=== PATIENT | female | born 1985 | race Hispanic/Latino ===

== ENCOUNTER 2018-01-12 10:10 | Emergency (ER) | payer MEDICAID ==
[2018-01-12 10:54] LABS: APPEARANCE,URINE Clear (CLEAR); BILIRUBIN,URINE Negative (NEGATIVE); COLOR,URINE Yellow (YELLOW); GLUCOSE, URINE (UA) Negative (NEGATIVE); KETONES,URINE Negative (NEGATIVE); LEUKOCYTE ESTERASE ,URINE Trace (NEGATIVE); NITRATE,URINE Negative (NEGATIVE); OCCULT BLOOD,URINE Negative (NEGATIVE); PH,URINE 5.5 (5.0-8.0); PROTEIN,URINE Negative (NEGATIVE); UROBILINOGEN,URINE 0.2 mg/dL (0.2-1.0)
[2018-01-12 10:59] LABS: HCG,QUAL RESULT NEGATIVE (NEGATIVE)
[2018-01-12 11:14] LABS: BACTERIA,URINE Few /HPF (None Seen); RBC,URINE 0-1 /HPF (0-1); SQUAMOUS EPITHELIAL CELL,UR 0-2 /HPF (0-2); WBC,URINE 0-1 /HPF (0-1)
== END 2018-01-12 12:16 | disposition home or self-care (01) ==
LOC: EDH 10:10
DX: S39.012A Strain of muscle, fascia and tendon of lower back, initial encounter (principal); F32.9 Major depressive disorder, single episode, unspecified; F41.9 Anxiety disorder, unspecified; Z90.49 Acquired absence of other specified parts of digestive tract; Z98.51 Tubal ligation status; Z72.0 Tobacco use; X58.XXXA Exposure to other specified factors, initial encounter; Y93.89 Activity, other specified; Y92.89 Other specified places as the place of occurrence of the external cause; Y99.8 Other external cause status
CPT/HCPCS: 81001; 81025

== ENCOUNTER 2018-10-19 06:03 | Emergency (ER) | payer MEDICAID, OTHER ==
[2018-10-19 06:48] LABS: BASOPHILS % (AUTO) 0.8 % (0.0-5.0); EOSINOPHILS % (AUTO) 2.7 % (0.0-8.0); HEMATOCRIT 39.9 % (36-48); LYMPHOCYTES % (AUTO) 26.4 % (21.0-51.0); MEAN CORPUSCULAR HEMOGLOBIN 30.2 pg (27.0-33.0); MEAN CORPUSCULAR HGB CONC 32.8 g/dL (32.0-36.0); MEAN CORPUSCULAR VOLUME 91.9 fL (79-99); MONOCYTES % (AUTO) 9.6 % (3.0-13.0); NEUTROPHILS % (AUTO) 60.5 % (40.0-77.0); PLATELET COUNT (AUTO) 252 K/uL (130-400); RED BLOOD CELL COUNT(AUTO) 4.34 MIL/uL (4.00-5.50); RED CELL DISTRIBUTION WIDTH 14.7 % (11.0-15.5); WHITE BLOOD COUNT (AUTO) 5.4 K/uL (4.8-10.8)
[2018-10-19 07:00] LABS: APPEARANCE,URINE Cloudy (CLEAR); BILIRUBIN,URINE Negative (NEGATIVE); COLOR,URINE Yellow (YELLOW); GLUCOSE, URINE (UA) Negative (NEGATIVE); KETONES,URINE Negative (NEGATIVE); LEUKOCYTE ESTERASE ,URINE Small (NEGATIVE); NITRATE,URINE Positive (NEGATIVE); OCCULT BLOOD,URINE Negative (NEGATIVE); PH,URINE 6.5 (5.0-8.0); PROTEIN,URINE Negative (NEGATIVE)
[2018-10-19 07:03] LABS: CREATININE 0.6 mg/dL (0.5-1.5); POTASSIUM 4.2 mmol/L (3.5-5.1)
[2018-10-19 07:09] LABS: ALBUMIN 3.7 g/dL (3.5-5.0); BILIRUBIN,TOTAL 0.5 mg/dL (0.2-1.0); TOTAL PROTEIN, SERUM 7.6 g/dL (6.0-8.3)
[2018-10-19 07:27] LABS: BACTERIA,URINE Many /HPF (None Seen)
[2018-10-19 07:28] LABS: RBC,URINE 0-1 /HPF (0-1)
[2018-10-19] MEDS ORDERED: LIDOCAINE HCL-MPF 1% 2ML VIAL ONE (07:31)
[2018-10-19] MEDS ORDERED: CEFTRIAXONE SODIUM 1 GM ONE (07:32)
[2018-10-19] MEDS ORDERED: KETOROLAC TROMETHAMINE 60 MG/2 ML VIAL ONE (07:32)
[2018-10-19 08:34] LABS: AMPHET/METH SCREEN,URINE NEGATIVE (NEGATIVE); BARBITURATE SCREEN, URINE NEGATIVE (NEGATIVE); BENZODIAZEPINES SCREEN,URINE NEGATIVE (NEGATIVE); CANNABINOID SCREEN,URINE POSITIVE (NEGATIVE); COCAINE SCREEN,URINE NEGATIVE (NEGATIVE); OPIATE SCREEN,URINE NEGATIVE (NEGATIVE); PHENCYCLIDINE SCREEN,URINE NEGATIVE (NEGATIVE)
== END 2018-10-19 09:21 | disposition home or self-care (01) ==
LOC: EDH 06:03
DX: N39.0 Urinary tract infection, site not specified (principal); M54.5 Low back pain; F41.9 Anxiety disorder, unspecified; F31.9 Bipolar disorder, unspecified; Z90.49 Acquired absence of other specified parts of digestive tract; Z72.0 Tobacco use
CPT/HCPCS: 36415; 80053; 80305; 81001; 81025; 85025; 96372 ×2; 99284; J0696; J1885; J3490

== ENCOUNTER 2019-11-06 13:43 | Emergency (ER) | payer OTHER ==
[2019-11-06] MEDS ORDERED: ACETAMINOPHEN 325 MG TAB ONE (14:06)
[2019-11-06] MEDS ORDERED: TETANUS/DIPHTHERIA TOXOID [ADULT] 0.5 ML VIAL IM ONE (14:07)
== END 2019-11-06 15:53 | disposition home or self-care (01) ==
LOC: EDH 13:43
DX: S81.811A Laceration without foreign body, right lower leg, initial encounter (principal); W25.XXXA Contact with sharp glass, initial encounter; Y93.89 Activity, other specified; Y92.098 Other place in other non-institutional residence as the place of occurrence of the external cause; Y99.8 Other external cause status; F41.9 Anxiety disorder, unspecified; F32.9 Major depressive disorder, single episode, unspecified; Z90.49 Acquired absence of other specified parts of digestive tract; Z72.0 Tobacco use
CPT/HCPCS: 12002; 73590; 90471; 90714

== ENCOUNTER 2019-11-20 09:13 | Emergency (ER) | payer OTHER | END 2019-11-20 09:34 | disposition home or self-care (01) | LOC: EDH 09:13 | DX: S81.811D Laceration without foreign body, right lower leg, subsequent encounter (principal); F41.9 Anxiety disorder, unspecified; F31.9 Bipolar disorder, unspecified; Z72.0 Tobacco use; X58.XXXD Exposure to other specified factors, subsequent encounter | CPT/HCPCS: 99281 ==

== ENCOUNTER 2020-06-19 23:41 | Emergency (ER) | payer OTHER ==
[2020-06-20] MEDS ORDERED: METHYLPREDNISOLONE SOD SUCC 40MG/ML 1ML ONE (00:27)
[2020-06-20 00:38] LABS: BASOPHILS % (AUTO) 0.6 % (0.0-5.0); EOSINOPHILS % (AUTO) 1.9 % (0.0-8.0); HEMATOCRIT 34.2 % (36-48); LYMPHOCYTES % (AUTO) 34.9 % (21.0-51.0); MEAN CORPUSCULAR HEMOGLOBIN 30.2 pg (27.0-33.0); MEAN CORPUSCULAR HGB CONC 33.3 g/dL (32.0-36.0); MEAN CORPUSCULAR VOLUME 90.5 fL (79-99); MONOCYTES % (AUTO) 8.3 % (3.0-13.0); NEUTROPHILS % (AUTO) 54.1 % (40.0-77.0); PLATELET COUNT (AUTO) 216 K/uL (130-400); RED BLOOD CELL COUNT(AUTO) 3.78 MIL/uL (4.00-5.50); RED CELL DISTRIBUTION WIDTH 13.9 % (11.0-15.5); WHITE BLOOD COUNT (AUTO) 6.5 K/uL (4.8-10.8)
[2020-06-20 00:41] LABS: APPEARANCE,URINE Cloudy (CLEAR); BILIRUBIN,URINE Negative (NEGATIVE); COLOR,URINE Yellow (YELLOW); GLUCOSE, URINE (UA) Negative (NEGATIVE); KETONES,URINE Negative (NEGATIVE); LEUKOCYTE ESTERASE ,URINE Small (NEGATIVE); NITRATE,URINE Negative (NEGATIVE); OCCULT BLOOD,URINE Negative (NEGATIVE); PH,URINE 6.5 (5.0-8.0); PROTEIN,URINE Negative (NEGATIVE)
[2020-06-20 00:44] LABS: HCG,QUAL RESULT NEGATIVE (NEGATIVE)
[2020-06-20 00:57] LABS: BACTERIA,URINE Few /HPF (None Seen); MUCUS,URINE Many LPF (None Seen); SQUAMOUS EPITHELIAL CELL,UR Many /HPF (0-2)
[2020-06-20 00:58] LABS: AMPHET/METH SCREEN,URINE NEGATIVE (NEGATIVE); BARBITURATE SCREEN, URINE NEGATIVE (NEGATIVE); BENZODIAZEPINES SCREEN,URINE POSITIVE (NEGATIVE); CANNABINOID SCREEN,URINE POSITIVE (NEGATIVE); COCAINE SCREEN,URINE NEGATIVE (NEGATIVE); OPIATE SCREEN,URINE NEGATIVE (NEGATIVE); PHENCYCLIDINE SCREEN,URINE NEGATIVE (NEGATIVE)
[2020-06-20 01:08] LABS: ALBUMIN 3.7 g/dL (3.5-5.0); BILIRUBIN,TOTAL 0.3 mg/dL (0.2-1.0); CREATININE 0.6 mg/dL (0.5-1.5); POTASSIUM 3.7 mmol/L (3.5-5.1); TOTAL PROTEIN, SERUM 7.2 g/dL (6.0-8.3)
[2020-06-20] MEDS ORDERED: CYCLOBENZAPRINE HCL 10 MG TABLET ONE (01:17)
[2020-06-20] MEDS ORDERED: KETOROLAC TROMETHAMINE 30MG/ML ONE (01:17)
== END 2020-06-20 01:35 | disposition home or self-care (01) ==
LOC: EDH 23:41
DX: M79.18 Myalgia, other site (principal); F41.9 Anxiety disorder, unspecified; F32.9 Major depressive disorder, single episode, unspecified; Z90.49 Acquired absence of other specified parts of digestive tract; Z72.0 Tobacco use
CPT/HCPCS: 36415; 80053; 80305; 81001; 81025; 85025; 96372; 96374; 99283; J1885; J2920

== ENCOUNTER 2022-01-02 02:58 | Emergency (ER) | payer OTHER ==
[~2022-01-02] VITALS: Ht 162.6 cm; Wt 67.1 kg
[2022-01-02 03:00] VITALS: BP 122/61
[2022-01-02 03:28] LABS: APPEARANCE,URINE CLOUDY (CLEAR); BILIRUBIN,URINE NEGATIVE (NEGATIVE); COLOR,URINE LIGHT-YELLOW (YELLOW); GLUCOSE, URINE (UA) NEGATIVE (NEGATIVE); KETONES,URINE 5 mg/dL (NEGATIVE); LEUKOCYTE ESTERASE ,URINE NEGATIVE Leu/uL (NEGATIVE); NITRATE,URINE NEGATIVE (NEGATIVE); OCCULT BLOOD,URINE NEGATIVE (NEGATIVE); PH,URINE 6.5 (5.0-8.0); PROTEIN,URINE 10 mg/dL (NEGATIVE); UROBILINOGEN,URINE 0.2 mg/dL (0.2-1.0)
[2022-01-02 03:31] LABS: HCG,QUALITATIVE URINE NEGATIVE (NEGATIVE)
[2022-01-02] MEDS ORDERED: CYCLOBENZAPRINE HCL 10 MG TABLET PO ONE (04:00)
[2022-01-02] MEDS ORDERED: KETOROLAC 60 MG VIAL (30MG/ML) IM ONE (04:00)
[2022-01-02] MEDS ORDERED: TIZA4CAP8 PO (04:30)
== END 2022-01-02 04:37 | disposition home or self-care (01) ==
LOC: EDH 02:58
DX: M54.9 Dorsalgia, unspecified (principal); R10.2 Pelvic and perineal pain; R30.0 Dysuria; Z90.49 Acquired absence of other specified parts of digestive tract; Z98.890 Other specified postprocedural states
CPT/HCPCS: 99283; 81003; 81025; 96372; J1885

== ENCOUNTER 2022-06-27 09:22 | Emergency (ER) | payer OTHER ==
[~2022-06-27] VITALS: Ht 167.6 cm; Wt 74.4 kg
[~2022-06-27 09:22] MED LIST: TIZA4CAP8 PO
[2022-06-27] MEDS ORDERED: 0.9%NACL 1000ML 1,000 ML IV ONE (09:30)
[2022-06-27 09:50] LABS: BASOPHILS % (AUTO) 0.4 % (0.0-5.0); EOSINOPHILS % (AUTO) 2.4 % (0.0-8.0); HEMATOCRIT 38.4 % (36-48); LYMPHOCYTES % (AUTO) 29.6 % (21.0-51.0); MEAN CORPUSCULAR HEMOGLOBIN 29.1 pg (27.0-33.0); MEAN CORPUSCULAR HGB CONC 32.3 g/dL (32.0-36.0); MEAN CORPUSCULAR VOLUME 90.1 fL (79-99); MONOCYTES % (AUTO) 8.2 % (3.0-13.0); NEUTROPHILS % (AUTO) 59.1 % (40.0-77.0); PLATELET COUNT (AUTO) 303 K/uL (130-400); RED BLOOD CELL COUNT(AUTO) 4.26 MIL/uL (4.00-5.50); RED CELL DISTRIBUTION WIDTH 14.3 % (11.0-15.5); WHITE BLOOD COUNT (AUTO) 7.4 K/uL (4.8-10.8)
[2022-06-27 09:57] LABS: CREATININE 0.6 mg/dL (0.5-1.5); POTASSIUM 4.1 mmol/L (3.5-5.1)
[2022-06-27 10:04] LABS: ALBUMIN 4.2 g/dL (3.5-5.0); TOTAL PROTEIN, SERUM 8.1 g/dL (6.0-8.3)
[2022-06-27 10:07] LABS: HCG,QUALITATIVE URINE NEGATIVE (NEGATIVE)
[2022-06-27 10:11] LABS: APPEARANCE,URINE CLEAR (CLEAR); BILIRUBIN,URINE NEGATIVE (NEGATIVE); COLOR,URINE LIGHT-YELLOW (YELLOW); GLUCOSE, URINE (UA) NEGATIVE (NEGATIVE); KETONES,URINE NEGATIVE (NEGATIVE); LEUKOCYTE ESTERASE ,URINE NEGATIVE Leu/uL (NEGATIVE); MUCUS,URINE RARE LPF (None Seen); NITRATE,URINE NEGATIVE (NEGATIVE); OCCULT BLOOD,URINE MODERATE (NEGATIVE); PROTEIN,URINE NEGATIVE (NEGATIVE); SQUAMOUS EPITHELIAL CELL,UR RARE /HPF (0-2); UROBILINOGEN,URINE 0.2 mg/dL (0.2-1.0)
[2022-06-27] MEDS ORDERED: ACETAMINOPHEN 500 MG TABLET PO ONE (11:30)
[2022-06-27] MEDS ORDERED: NAPR375T6 PO (11:57)
[2022-06-27 12:03] VITALS: BP 112/78
== END 2022-06-27 12:02 | disposition home or self-care (01) ==
LOC: EDH 09:22
DX: E86.0 Dehydration (principal); R55 Syncope and collapse; Z98.890 Other specified postprocedural states
CPT/HCPCS: 99284; 96360; 70450; 82550; 84484; 80053; 85025; 81001; 81025; 36415; 93005; J7030

== ENCOUNTER 2022-09-23 21:26 | Emergency (ER) | payer OTHER ==
[~2022-09-23] VITALS: Ht 162.6 cm; Wt 73.5 kg
[~2022-09-23 21:26] MED LIST changes: +NAPR375T6 PO
[2022-09-24] MEDS ORDERED: IBUP-2076 PO (00:15)
[2022-09-24] MEDS ORDERED: IBUPROFEN 200 MG TAB PO STA (01:18)
[2022-09-24 01:25] VITALS: BP 125/74
== END 2022-09-24 01:26 | disposition home or self-care (01) ==
LOC: EDH 21:26
DX: M79.671 Pain in right foot (principal); Z79.899 Other long term (current) drug therapy; Z90.49 Acquired absence of other specified parts of digestive tract; Z98.890 Other specified postprocedural states
CPT/HCPCS: 73630

== ENCOUNTER 2023-06-09 11:24 | Emergency (ER) | payer OTHER ==
[~2023-06-09] VITALS: Ht 162.6 cm; Wt 78.9 kg
[~2023-06-09 11:24] MED LIST changes: +IBUP-2076 PO
[2023-06-09] MEDS: IBUPROFEN 600 MG TABLET PO ONE (13:38)
[2023-06-09] MEDS ORDERED: IBUP-2070 PO (15:04)
[2023-06-09] MEDS: ACETAMINOPHEN WITH CODEINE 1 TAB TAB PO ONE (15:21)
[2023-06-09 15:33] VITALS: BP 145/78; PULSE 78; RESP 16; O2SAT 97
== END 2023-06-09 15:36 | disposition home or self-care (01) ==
LOC: EDH 11:24
DX: S92.352A Displaced fracture of fifth metatarsal bone, left foot, initial encounter for closed fracture (principal); X50.1XXA Overexertion from prolonged static or awkward postures, initial encounter; Y93.02 Activity, running; Y92.89 Other specified places as the place of occurrence of the external cause; Y99.8 Other external cause status; Z90.49 Acquired absence of other specified parts of digestive tract; Z98.890 Other specified postprocedural states
CPT/HCPCS: 73630

== ENCOUNTER 2024-02-26 19:18 | Emergency (ER) | payer SELFPAY ==
[~2024-02-26] VITALS: Ht 162.6 cm; Wt 74.8 kg
[~2024-02-26 19:18] MED LIST changes: +IBUP-2070 PO; +NAPR-1505 PO; -NAPR375T6 PO
[2024-02-26] MEDS: DiphenhydrAMINE HCL 50 MG/ML VIAL IM ONE (20:23)
[2024-02-26] MEDS: PROCHLORPERAZINE 10MG/2ML INJ IV ONE (20:23)
[2024-02-26] MEDS: ketOROlac 30MG VIAL (30MG/ML) IM ONE (20:25)
[2024-02-26 20:45] VITALS: BP 127/75; PULSE 64; RESP 18; TEMP 98.5; O2SAT 99
--- NOTE | 2024-02-26 20:50 | ERN ---
General Chief Complaint: Headache Stated Complaint: C/O HEADACHE, N X V ONSET TODAY Time Seen by MD: 19:31 History of Present Illness Initial Comments Ms. Mckeon is a very pleasant 38-year-old female significant past medical history of chronic migraines who comes in today with a chief complaint of headache. Patient reports that she has right-sided headache with light sensitivity. Patient reports that she has otherwise use to having 5 migraines a month. Patient states that she is also having neck pain. Allergies: Coded Allergies: No Known Allergies (Unverified Allergy, Unknown, 10/19/18) Home Meds Active Scripts Ibuprofen (Ibuprofen) 600 Mg Tablet, 600 MG PO Q6H PRN for PAIN, #30 TAB Prov:PENNY UPTON V PROFESSOR OF PSYCHIATRY 06/09/23 Ibuprofen (Ibuprofen) 400 Mg Tablet, 400 MG PO TIDP PRN for PAIN, #30 TAB Prov:STEFANIE MORIN MD 09/24/22 Naproxen (Naproxen) 375 Mg Tablet.dr, 375 MG PO BID for 7 Days, #14 TAB Prov:LINDSEY SOLIS MD 06/27/22 Tizanidine HCl (Tizanidine HCl) 4 Mg Capsule, 4 MG PO TIDP PRN for MUSCLE SPASMS, #12 CAP 0 Refills Prov:ADRIA VARGHESE MD 01/02/22 Past Medical History Past Medical History: Anxiety, Migraines Past Surgical History: Cholecystectomy, Other Surgical History Other: TUBAL LIGATION Family History Family History: Negative Social History Social History: Negative, Other Female( History) LMP: Feb 11, 2024 ROS Dictation Constitutional: Negative for fever,chills, and weight loss Eyes: Negative for injury, pain,redness, and discharge ENT: Negative for injury,pain or swelling Cardiovascular: Negative for chest pain, palpitations, and edema Respiratory: Negative for shortness of breath, cough, and wheezing, Abdomen/GI: Negative for abdominal pain, nausea, vomiting, diarrhea, and constipation Back: Negative for injury and pain : Negative for injury, bleeding and discharge MS/Extremity: Negative for injury and deformity Skin: Negative for rash, and discoloration Neuro: Positive for headache Psych: Negative for suicide ideation, homicidal ideation, and hallucinations Physical Exam Physical Exam Dictation General: awake, alert, NAD Head/Face: Normocephalic, atraumatic Eyes: PERRL, EOMI, vision at baseline ENT: oral cavity clear Neck: Trachea midline Cardiovascular: RRR, normal S1/S2, Respiratory: CTAB, no respiratory distress Abdomen: Soft, non-tender, non-distended Skin: Warm, dry, normal turgor, no rash MS/Extremity: Pulses equal, no cyanosis Neuro: COAx4, GCS 15, strength 5/5 Results Laboratory and Microbiology Lab and Micro Result Laboratory Tests Test 02/26/24 19:31 Urine HCG, Qualitative NEGATIVE (NEGATIVE) MDM Patient has been given migraine medicine to help with her presentation. Patient reports that she has had substantial relief. Patient would like to go home MDM: Differential diagnosis: Migraine Rationale: Tests considered and ordered secondary to shared decision making include: Previous outside records reviewed: Old ER visits. Risk of complication and/or morbidity or mortality of patient management: None Medications-Per medication reconciliation Need for hospitalization: Patient does not meet criteria for hospitalization. Need for emergency major/minor surgery: No There are no social concerns with this patient. Prescription drug management Prescriptions will include symptomatic care Patient's prior external medical records from other ER visits were reviewed by me as indicated. Prior testing and results from previous visits were reviewed. Prior tests were taken into account with medical decision making and resource utilization, independent historian/historians were used to obtain complete medical history. I independently interpreted the test that were performed, results were reviewed by me and considered findings on radiology if ordered. Medical management and examination interpretation discussions were had by me with other qualified healthcare professionals as indicated for the patient's care. ED Course Orders Procedure Category Date Status Time ,Urine Test LAB 02/26/24 Complete 19:38 Prochlorperazine PHA 02/26/24 Complete 10mg/2ml Inj 20:00 Ketorolac PHA 02/26/24 Complete Tromethamine 30mg/Ml 20:00 Diphenhydramine Hcl PHA 02/26/24 Complete (Benadryl Inj) 20:00 Current Medications Medications (Trade) Dose Ordered Sig/Max Route PRN Reason Start Time Stop Time Status Last Admin Dose Admin Diphenhydramine HCl (BENAdryl INJ) 25 mg ONCE ONCE IM 02/26/24 20:00 02/26/24 20:01 DC 02/26/24 20:23 Ketorolac Tromethamine (toRADol) 30 mg ONCE ONCE IM 02/26/24 20:00 02/26/24 20:01 DC 02/26/24 20:25 Prochlorperazine Edisylate (Compazine 10mg/ 2ml Inj) 10 mg ONCE ONCE IV 02/26/24 20:00 02/26/24 20:01 DC 02/26/24 20:23 Vital Signs Date Time Temp Pulse Resp B/P (MAP) Pulse Ox O2 Delivery O2 Flow Rate FiO2 02/26/24 19:21 98.4 60 20 134/77 99 Room Air DX & DISP Disposition: Discharge Departure Impression: Primary Impression: Migraine Condition: Stable Additional Instructions: Please make sure you take your prophylactic medicine for your migraines. Please see your primary care/neurologist for further evaluation and care in the next 1- 7 days Referrals: SELF,REFERRAL (PCP) MARLEY RAE MD Feb 26, 2024 20:50
== END 2024-02-26 21:02 | disposition home or self-care (01) ==
LOC: EDH 19:18
DX: G43.909 Migraine, unspecified, not intractable, without status migrainosus (principal); F41.9 Anxiety disorder, unspecified; Z79.899 Other long term (current) drug therapy; Z90.49 Acquired absence of other specified parts of digestive tract; Z98.51 Tubal ligation status
CPT/HCPCS: 99284; 96374; 81025; 96372 ×2; J1200; J0780; J1885

== ENCOUNTER 2024-12-20 13:45 | Emergency (ER) | payer MEDICAID ==
[~2024-12-20] VITALS: Ht 162.6 cm; Wt 66.2 kg
[~2024-12-20 13:45] MED LIST changes: +IBUP-1492 PO; -IBUP-2070 PO
[2024-12-20 14:20] LABS: IMMATURE GRANULOCYTE ABSOLUTE 0.09 K/uL (0-1); NUCLEATED RED BLOOD CELLS 0.0 % (0.0-0.19); PLATELET COUNT (AUTO) 327 K/uL (130-400); RED BLOOD CELL COUNT(AUTO) 4.48 MIL/uL (4.00-5.50); RED CELL DISTRIBUTION WIDTH 13.9 % (11.0-15.5); WHITE BLOOD COUNT (AUTO) 10.7 K/uL (4.8-10.8)
[2024-12-20 14:33] LABS: CREATININE 0.5 mg/dL (0.5-1.0); GLOMERULAR FILTR. RATE CALC 122.0 mL/min (>90); GLUCOSE,RANDOM 126.0 mg/dL (70-105); SODIUM SERUM 142.0 mmol/L (136-145); UREA NITROGEN, BLOOD 21.0 mg/dL (7-18)
[2024-12-20 14:38] LABS: CREATINE KINASE, TOTAL 38.0 U/L (21-232)
[2024-12-20 15:14] LABS: APPEARANCE,URINE CLOUDY (CLEAR); GLUCOSE, URINE (UA) NEGATIVE (NEGATIVE); LEUKOCYTE ESTERASE ,URINE NEGATIVE Leu/uL (NEGATIVE); NITRATE,URINE NEGATIVE (NEGATIVE); OCCULT BLOOD,URINE NEGATIVE (NEGATIVE)
[2024-12-20 15:16] LABS: ADD UA MICROSCOPIC YES
[2024-12-20 15:23] LABS: SQUAMOUS EPITHELIAL CELL,UR FEW /HPF (0-2)
[2024-12-20 15:24] LABS: AMPHET/METH SCREEN,URINE NEGATIVE (NEGATIVE); BARBITURATE SCREEN, URINE NEGATIVE (NEGATIVE); CANNABINOID SCREEN,URINE POSITIVE (NEGATIVE); COCAINE SCREEN,URINE NEGATIVE (NEGATIVE)
[2024-12-20] MEDS: 0.9%NACL 1000ML 1,000 ML IV ONE (15:47)
--- NOTE | 2024-12-20 15:53 | HMCIMG ---
Indication: Chest pain. Technique: Radiograph of the chest, frontal view. Comparison: No pertinent prior similar studies have been submitted for comparison. Findings: The trachea is in midline. The cardiomediastinal contour is within normal limits. Lungs are clear. No pleural effusion is noted. The soft tissues and the osseous structures of the chest are unremarkable. Impression: No radiographic evidence of acute cardiopulmonary process. /Tacho
--- NOTE | 2024-12-20 15:58 | ERN ---
General Chief Complaint: Headache Stated Complaint: HEADACHE, NECK PAIN, CHEST PRESSURE Time Seen by MD: 13:47 Source: patient History of Present Illness Initial Comments Patient is a 39-year-old female coming in with multiple complaints. Patient states that she has been having having for some time chest pressure and believes it might be associated with a her anxiety. Allergies: Coded Allergies: No Known Allergies (Unverified Allergy, Unknown, 10/19/18) Home Meds Active Scripts Ibuprofen (Ibuprofen) 600 Mg Tablet, 600 MG PO Q6H PRN for PAIN, #30 TAB Prov:PENYN UPTON V CRISIS NURSE 06/09/23 Ibuprofen (Ibuprofen) 400 Mg Tablet, 400 MG PO TIDP PRN for PAIN, #30 TAB Prov:STEFANIE MORIN MD 09/24/22 Naproxen (Naproxen) 375 Mg Tablet.dr, 375 MG PO BID for 7 Days, #14 TAB Prov:LINDSEY SOLIS MD 06/27/22 Tizanidine HCl (Tizanidine HCl) 4 Mg Capsule, 4 MG PO TIDP PRN for MUSCLE SPASMS, #12 CAP 0 Refills Prov:ADRIA VARGHESE MD 01/02/22 Past Medical History Past Medical History: Anxiety, Migraines Past Surgical History: Cholecystectomy, Other Surgical History Other: TUBAL LIGATION Family History Family History: Negative Social History Social History: Negative, Other Female( History) LMP: Nov 12, 2024 ROS Dictation CONSTITUTIONAL: No chills, no fever, no weakness, no diaphoresis, no malaise. HEAD/FACE: No signs of trauma. EENT: No eye pain, no blurred vision, no tearing, no double vision, no ear pain, no ear discharge, no nose pain, no nasal congestion, no throat pain, no throat swelling, no mouth pain. RESPIRATORY: No cough, no orthopnea, no SOB, no stridor, no wheezing. CARDIOVASCULAR: chest pain, no edema, no palpitations, no syncope. GASTROINTESTINAL/ABDOMINAL: No abdominal pain, no constipation, no diarrhea, no nausea, no vomiting. GENITOURINARY: No abnormal discharge, no dysuria, no frequent urination, no hematuria. No complaints of pain in the genitals. MUSCULOSKELETAL: No back pain, no gout, no joint pain, no joint swelling, no muscle pain, no muscle stiffness, no neck pain. INTEGUMENTARY: No change in color, no change in hair/nails, no dryness, no lesion, no lumps, no rash. NEUROLOGICAL/PSYCH: No anxiety, not depressed, no emotional problem, no headache, no numbness, no pre-existing deficit, no history of seizures, no tremors, no weakness. HEMATOLOGIC/LYMPHATIC: Not anemic, no history of blood clots, no apparent bleeding, no bruising, glands not swollen. All Systems Negative, Except as Noted. Physical Exam Physical Exam Dictation VITAL SIGNS: Reviewed. GENERAL APPEARANCE: Alert, oriented x3, no acute distress, obese. HEAD AND FACE: Non-traumatic. EYES: PERRL, pink conjunctivas, eyelid no trauma, anterior chamber clear. EARS: Pinnas intact and no signs of trauma or erythema. Ear canals clear and no discharge. TMs no erythema. NOSE: No discharge, no bleeding. OROPHARYNX: Mouth normal, teeth no caries, tongue pink. Pharynx clear, no erythema. Tonsils no exudates, no abscesses noted. Mucous membrane moist. NECK: Supple, non-tender, no thyromegaly, no masses, no JVD, no bruits. BREAST: Deferred. CHEST: No tenderness, no crepitus, no paradoxical movement, no retractions. LUNGS: Clear, well-ventilated, symmetric, no rales, no wheezing, no rhonchi, no stridor, good breath sounds bilaterally. HEART: Regular rate, regular rhythm, no murmur, no gallops. VASCULAR: No peripheral edema. ABDOMEN: Soft, positive bowel sounds, nondistended, no guarding, nontender, no rebound, no masses no hepatomegaly, no splenomegaly, no Miller's sign, no hernias. RECTAL: Deferred. GENITAL: Deferred. NEUROLOGICAL: Normal speech, gross motor function intact, gross sensory function intact. MUSCULOSKELETAL: Neck nontender, full range of motion, back nontender, full range of motion. EXTREMITIES: Nontender, full range of motion. SKIN: Color pink, dry, no turgor, no rash, no lacerations, no abrasions, no contusions. LYMPHATICS: Deferred. Results Laboratory and Microbiology Lab and Micro Result Laboratory Tests Test 12/20/24 14:12 12/20/24 14:52 White Blood Count 10.7 K/uL (4.8-10.8) Red Blood Count 4.48 MIL/uL (4.00-5.50) Hemoglobin 13.7 g/dL (12.0-16.0) Hematocrit 41.6 % (36-48) Mean Corpuscular Volume 92.9 fL (79-99) Mean Corpuscular Hemoglobin 30.6 pg (27.0-33.0) Mean Corpuscular Hemoglobin Concent 32.9 g/dL (32.0-36.0) Red Cell Distribution Width 13.9 % (11.0-15.5) Platelet Count 327 K/uL (130-400) Mean Platelet Volume 8.9 fL (7.5-10.5) Immature Granulocyte % (Auto) 0.8 % (0-1) Neutrophils (%) (Auto) 69.5 % (40.0-77.0) Lymphocytes (%) (Auto) 20.5 % (21.0-51.0) L Monocytes (%) (Auto) 8.0 % (3.0-13.0) Eosinophils (%) (Auto) 0.9 % (0.0-8.0) Basophils (%) (Auto) 0.3 % (0.0-5.0) Neutrophils # (Auto) 7.4 K/uL (1.8-7.7) Lymphocytes # (Auto) 2.2 K/uL (1.0-4.8) Monocytes # (Auto) 0.9 K/uL (0.1-1.0) Eosinophils # (Auto) 0.10 K/uL (0.00-0.70) Basophils # (Auto) 0.03 K/uL (0.00-0.20) Absolute Immature Granulocyte (auto 0.09 K/uL (0-1) Nucleated Red Blood Cells 0.0 % (0.0-0.19) Sodium Level 142 mmol/L (136-145) Potassium Level 3.4 mmol/L (3.5-5.1) L Chloride Level 102 mmol/L (101-111) Carbon Dioxide Level 29 mmol/L (21-32) Blood Urea Nitrogen 21 mg/dL (7-18) H Creatinine 0.5 mg/dL (0.5-1.0) Glomerular Filtration Rate Calc 122 mL/min (>90) Random Glucose 126 mg/dL (70-105) H Total Calcium 9.5 mg/dL (8.5-10.1) Magnesium Level 2.40 mg/dL (1.80-2.40) Total Creatine Kinase 38 U/L (21-232) # Troponin I High Sensitivity 5 ng/L (4-50) Urine Color LIGHT-YELLOW (YELLOW) Urine Appearance CLOUDY (CLEAR) H Urine pH 6.5 (5.0-8.0) Urine Specific [place] 1.021 (1.001-1.031) Urine Protein NEGATIVE mg/dL (NEGATIVE) Urine Glucose (UA) NEGATIVE mg/dL (NEGATIVE) Urine Ketones NEGATIVE mg/dL (NEGATIVE) Urine Occult Blood NEGATIVE (NEGATIVE) Urine Nitrate NEGATIVE (NEGATIVE) Urine Bilirubin NEGATIVE mg/dL (NEGATIVE) Urine Urobilinogen 0.2 mg/dL (0.2-1.0) Urine Leukocyte Esterase NEGATIVE Esequiel/uL Urine RBC 2-5 /HPF (0-1) H Urine WBC 2-5 /HPF (0-1) H Urine Squamous Epithelial Cells FEW /HPF (0-2) Urine Bacteria RARE /HPF (None Seen) Urine Opiates Screen NEGATIVE (NEGATIVE) Urine Barbiturates Screen NEGATIVE (NEGATIVE) Urine Phencyclidine Screen NEGATIVE (NEGATIVE) Urine Amphetamines Screen NEGATIVE (NEGATIVE) Urine Benzodiazepines Screen NEGATIVE (NEGATIVE) Urine Cocaine Screen NEGATIVE (NEGATIVE) Urine Marijuana (THC) Screen POSITIVE (NEGATIVE) H Labs Reviewed?: Yes EKG/XRAY/US/CT/MRI EKG Comment 12/20/2024 time 1:59 p.m. Ventricular rate 61 Sinus rhythm HI [address] wave elevation or depression MDM MDM: Differential diagnosis: Headache, tension headache, cannabis abuse, dehydration, Rationale: Tests considered and ordered secondary to shared decision making include: Previous outside records reviewed: Old ER visits. Risk of complication and/or morbidity or mortality of patient management: None Medications-Per medication reconciliation Need for hospitalization: Patient does not meet criteria for hospitalization. Need for emergency major/minor surgery: No Patient is a 39-year-old female coming in with multiple complaints. Patient was hydrated with IV fluids given the headache cocktail. Laboratory workup positive for cannabis. Patient does has a history of anxiety. Patient will be discharged in stable condition I did advised her appropriate follow up with the PCP for long-term management. ED Course Orders Procedure Category Date Status Time Cbc With Differential LAB 12/20/24 Complete 13:55 Chest 1vw RAD 12/20/24 Resulted 13:55 12 Lead Ekg Tracing- EKG 12/20/24 Logged Technical 13:55 Magnesium LAB 12/20/24 Complete 13:55 Creatine Kinase, Total LAB 12/20/24 Complete 13:55 Troponin I High LAB 12/20/24 Complete Sensitivity 13:55 Urinalysis Profile LAB 12/20/24 Complete 13:55 Basic Metabolic Panel LAB 12/20/24 Complete 13:55 Drug Screen Urine LAB 12/20/24 Complete 13:55 Potassium Bicarb/Cit PHA 12/20/24 In Process Ac 25meq (K-Lyte Ta 16:00 0.9%Nacl 1000ml (Ns PHA 12/20/24 In Process 1000ml) 16:00 Acetaminophen 500mg PHA 12/20/24 Logged Tab (Tylenol 500mg T 16:00 Prochlorperazine PHA 12/20/24 Logged 10mg/2ml Inj 16:00 Diphenhydramine Hcl PHA 12/20/24 Transmitted (Benadryl Inj) 16:00 Current Medications Medications (Trade) Dose Ordered Sig/Max Route PRN Reason Start Time Stop Time Status Last Admin Dose Admin Acetaminophen (TYLenol 500MG TAB) 1,000 mg ONCE ONCE PO 12/20/24 16:00 12/20/24 16:01 UNV Diphenhydramine HCl (BENAdryl INJ) 25 mg ONCE ONCE IV 12/20/24 16:00 12/20/24 16:01 UNV Potassium Bicarbonate (K-Lyte Tablet Eff 25 Meq Tablet.eff) 25 meq ONCE ONCE PO 12/20/24 16:00 12/20/24 16:01 12/20/24 15:47 Prochlorperazine Edisylate (Compazine 10mg/ 2ml Inj) 10 mg ONCE ONCE IV 12/20/24 16:00 12/20/24 16:01 UNV Sodium Chloride 1,000 ml @ 0 mls/hr ONCE ONCE IV 12/20/24 16:00 12/20/24 16:01 12/20/24 15:47 Vital Signs Date Time Temp Pulse Resp B/P (MAP) Pulse Ox O2 Delivery O2 Flow Rate FiO2 12/20/24 14:59 60 16 145/93 100 Room Air* 0 21 12/20/24 13:46 69 16 158/94 98 Room Air 0 DX & DISP Disposition: Discharge Departure Impression: Primary Impression: Dehydration Additional Impression: Cannabis abuse Condition: Stable Additional Instructions: FOLLOW-UP WITH PRIMARY CARE PROVIDER IN 1 TO 2 DAYS. TAKE MEDICATIONS DIRECTED HERE IN THE EMERGENCY ROOM. OKAY TO CONTINUE HOME MEDICATIONS UNLESS OTHERWISE DISCUSSED DURING YOUR VISIT IN THE EMERGENCY ROOM TODAY. RETURN TO Y OUR NEAREST EMERGENCY ROOM IF SYMPTOMS WORSEN OR IF THERE IS NO IMPROVEMENT. CALL 911 IF YOU NEED IMMEDIATE ASSISTANCE. TAKE TYLENOL [id number] NEEDED AND IF NO CONTRAINDICATIONS ARE PRESENT. INCREASE ORAL HYDRATION. A WOUND CULTURE OR URINE CULTURE WAS ORDERED HERE IN THE EMERGENCY ROOM DEPARTMENT PLEASE FOLLOW-UP WITH PRIMARY CARE PROVIDER AND ADVISE THEM TO GET REPORTS FROM OUR FACILITY. IF YOU HAD ANY YANET WRAP/SPLINTS THAT WERE APPLIED HERE, PLEASE DO NOT REMOVE THEM UNTIL YOU SEE YOUR PRIMARY CARE OR SPECIALTY. Referrals: Referrals: SYLVIE ZARCO (PCP) Time of Disposition: 15:58 LINDSEY SOLIS MD Dec 20, 2024 15:58
[2024-12-20] MEDS: PROCHLORPERAZINE 10MG/2ML INJ IV ONE (15:59)
--- NOTE | 2024-12-20 16:21 | NUR ---
PENDING COMPLETION OF IV MEDS PRIOR TO DISCHARGE
--- NOTE | 2024-12-20 16:52 | EKG ---
[facility] Test Date: 2024-12-20 Test Time: 13:59:45 Pat Name: CHRISTINE NOYOLA Department: ED Room: Gender: F Medical Service Representative: 08 : 1985 Requested By: LINDSEY SOLIS Order Number: [id number] Reading MD: Quin Lopez Measurements Intervals [place] Rate: 61 P: 26 ME: 174 QRS: 49 QRSD: 88 T: 48 QT: 401 QTc: 403 Interpretive Statements Sinus rhythm Probable left ventricular hypertrophy Compared to ECG 06/27/2022 09:46:42 No significant changes Electronically Signed On 12-22-2024 10:17:47 CDT by Quin Lopez Please click the below link to view image of tracing.
[2024-12-20 17:11] VITALS: BP 142/84; PULSE 62; RESP 16; TEMP 98.3; O2SAT 98
== END 2024-12-20 17:13 | disposition home or self-care (01) ==
LOC: EDH 13:45
DX: E86.0 Dehydration (principal); F12.10 Cannabis abuse, uncomplicated; Z79.899 Other long term (current) drug therapy; Z90.49 Acquired absence of other specified parts of digestive tract; Z98.51 Tubal ligation status
CPT/HCPCS: 99285; 96374; 71045; 96361; 96375; 82550; 83735; 84484; 80048; 80305; 85025; 36415; 93005; 81001; J1200; J7030; J0780